=== PATIENT | female | born 2000 | race Two or more races ===

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

== ENCOUNTER 2025-04-22 01:27 | Emergency (ER) | payer OTHER ==
[~2025-04-22] VITALS: Ht 154.9 cm; Wt 61.2 kg
[~2025-04-22 01:27] MED LIST: NAPROXEN500 MG PO
[2025-04-22] MEDS ORDERED: FAMOTIDINE/PF 20 MG/2 ML VIAL IV PUSH STA (02:24)
[2025-04-22] MEDS ORDERED: PROMETHAZINE HCL 50 MG/ML AMPUL IM STA (02:24)
[2025-04-22] MEDS ORDERED: FAMOTIDINE/PF 20 MG/2 ML VIAL ONE (02:29)
[2025-04-22] MEDS ORDERED: PROMETHAZINE HCL 50 MG/ML AMPUL IM ONE (02:29)
[2025-04-22] MEDS ORDERED: 0.9 % SODIUM CHLORIDE 1,000 ML IV ONE (02:30)
[2025-04-22 03:12] LABS: BASO % 0.2 % (0.1-1.2); EOS # 0.02 (0.04-0.54); EOS % 0.2 % (0.7-7.0); LYMPH # 0.24 (1.18-3.74); LYMPH % 2.3 % (19.3-53.1); MEAN PLATELET VOLUME 10.60 fl (9.4-12.4); MONO # 0.43 (0.24-0.82); MONO % 4.1 % (4.7-12.5); NEUT # 9.67 (1.56-6.13); NEUT % 92.9 % (34.0-71.1); RED CELL DISTRIBUTION WIDTH 12.8 % (11.6-14.4)
[2025-04-22 03:12] LABS: URINE APPEARANCE Cloudy; URINE BILIRRUBIN Negative (NEGATIVE); URINE BLOOD Trace; URINE COLOR Yellow; URINE GLUCOSE Negative (NEGATIVE); URINE LEUKOCYTE Trace; URINE NITRATE Negative; URINE PROTEIN Trace (NEGATIVE); URINE UROBILINOGEN 0.2 E.U./dl
[2025-04-22 03:16] LABS: URINE BACTERIA 557.0 uL (0.0-1933); URINE EPITHELIAL CELLS 10.7 uL (0.0-38.8); URINE RBC 17.8 uL (0.0-20.8); URINE WBC 21.9 uL (0.0-23.2)
[2025-04-22 03:20] LABS: URINE CAST 0.28 uL (0.0-1.40); URINE KETONE 40 (NEGATIVE)
[2025-04-22 03:33] LABS: ALT/SGPT 33.0 U/L (12-78); AST/SGOT 30.0 U/L (15-37); BILIRUBIN TOTAL 1.03 mg/dL (0.3-1.2); BUN CREA RATIO 31.0 (7.0-25.0); CREATININE SERUM 0.75 mg/dL (0.55-1.02); GFR 94.15; GLOBULINA 4.1 G/DL (2.4-3.5); GLUCOSE FASTING 135.0 mg/dL (65-100); OSMOLALITY SERUM 287.0 MOSM/KG (275-295)
[2025-04-22] MEDS ORDERED: ONDANSETRON ODT8 MG PO (05:58)
[2025-04-22] MEDS ORDERED: PEPCID40 MG PO (05:58)
== END 2025-04-22 06:05 ==
LOC: ER 01:28
PROVIDERS: General Practice
DX: R11.10 Vomiting, unspecified (principal); R68.83 Chills (without fever)